=== PATIENT | male | born 1940 | race Caucasian/White ===

== ENCOUNTER 2017-02-11 07:57 | Outpatient (CLI) | payer MEDICARE ==
--- NOTE | 2017-02-11 09:50 | RAD ---
PA AND LATERAL CHEST: Date: 02-11-17 History: CHF. Comparison: 07-21-12 FINDINGS: Triple lead left subclavian AICD device remains in place. Cardiac silhouette is within normal limits . There are increased interstitial opacities seen in the upper lung zones bilaterally similar to the prior study, but more prominent on today's examination, some of which is related to technique. Ther e is interstitial density most likely related to chronic interstitial fibrotic lung changes. No foca l area of consolidation or pleural fluid is seen. Vascular calcification is seen in the thoracic aor ta. No other interval change. IMPRESSION: 1. Chronic lung changes. 2. No acute cardiopulmonary process. POS: [facility]
[2017-02-11 10:46] LABS: #Basophils 0.1 thou/uL (0.0-0.2); #Eosinphils 0.6 thou/uL (0.0-0.7); #Lymphocytes 1.5 thou/uL (1.20-3.40); #Monocytes 0.6 thou/uL (0.11-0.59); #Neutrophils 6.4 thou/uL (1.40-6.50); %Basophils 1.3 % (0.0-1.0); %Eosinophils 6.3 % (0.0-10.0); %Lymphocytes 16.1 % (21.0-51.0); %Neutrophils 69.4 % (42.0-75.0); Hemoglobin 15.2 g/dL (14.0-18.0); Mean Corpuscular HGB CONC 32.9 g/dL (32.0-36.0); Mean Corpuscular Hemoglobin 30.1 pg (27.0-31.0); Mean Corpuscular Volume 91.5 fl (80.0-94.0); Mean Platelet Volume 5.6 fL (7.4-10.4); Platelet Count 293 thou/uL (130-400); RBC Distribution Width 11.8 % (11.5-14.5); Red Blood Cell (RBC) Count 5.03 mill/uL (4.70-6.10); White Blood Cell (WBC) Count 9.2 thou/uL (4.8-10.8)
[2017-02-11 11:07] LABS: Hemoglobin A1c 5.4 % (4.0-6.0)
[2017-02-11 11:15] LABS: ALT (SGPT) Less than 6 U/L (8-55); AST (SGOT) 12 U/L (5-34); Albumin 3.8 g/dL (3.4-4.8); Alkaline Phosphatase 85 U/L (40-150); Anion Gap 15 mmol/L (10-20); BUN (Urea Nitrogen) 13 mg/dL (8.4-25.7); Bilirubin, Direct 0.2 mg/dL (0.1-0.3); Bilirubin, Total 0.5 mg/dL (0.2-1.2); Calc. Creatinine Clearance 0 mL/min (70-130); Calcium 9.5 mg/dL (7.8-10.44); Carbon Dioxide 29 mmol/L (23-31); Cardiac Risk 2.4 (Less than 4.5); Chloride 99 mmol/L (98-107); Cholesterol 131 mg/dl (< 200 Desired); Estimated GFR-MDRD 65; Globulin 3.5 g/dL (2.4-3.5); Glucose 114 mg/dL (83-110); HDL Cholesterol 54 mg/dL (>60 Neg Risk); LDL Cholesterol, Calculated 64 mg/dL; Potassium 4.2 mmol/L (3.5-5.1); Protein, Total 7.3 g/dL (5.8-8.1); Sodium 139 mmol/L (136-145); Triglycerides 66 mg/dL (Less than 150)
[2017-02-11 11:33] LABS: Free T4 (Free Thyroxine) 1.18 ng/dL (0.70-1.48); PSA-Asymptomatic (SCREENING) 2.89 ng/mL (0-4.0)
== END 2017-02-11 07:58 | disposition home or self-care (01) ==
LOC: MADLAB 07:57
PROVIDERS: ATTEND Specialist
DX: Z00.00 Encounter for general adult medical examination without abnormal findings (principal); I50.9 Heart failure, unspecified; E11.9 Type 2 diabetes mellitus without complications
CPT/HCPCS: 71020; 80053; 80061; 82248; 83036; 84439; 84479; 85025; G0103

== ENCOUNTER 2017-04-22 13:43 | Outpatient (CLI) | payer MEDICARE ==
[2017-04-22 14:22] LABS: Hemoglobin A1c 5.3 % (4.0-6.0)
[2017-04-22 14:28] LABS: Cardiac Risk 2.3 (Less than 4.5); Cholesterol 110 mg/dl (< 200 Desired); Glucose 117 mg/dL (83-110); HDL Cholesterol 48 mg/dL (>60 Neg Risk); LDL Cholesterol, Calculated 36 mg/dL; Triglycerides 130 mg/dL (Less than 150)
== END 2017-04-22 13:44 | disposition home or self-care (01) ==
LOC: MADLAB 13:43
PROVIDERS: ATTEND Internal Medicine Endocrinology, Diabetes & Metabolism
DX: E11.65 Type 2 diabetes mellitus with hyperglycemia (principal); E11.40 Type 2 diabetes mellitus with diabetic neuropathy, unspecified; I10 Essential (primary) hypertension
CPT/HCPCS: 36415; 80061; 82947; 83036

== ENCOUNTER 2017-06-05 13:32 | Outpatient (CLI) | payer MEDICARE ==
[2017-06-05 13:48] LABS: #Basophils 0.1 thou/uL (0.0-0.2); #Eosinphils 0.7 thou/uL (0.0-0.7); #Lymphocytes 1.4 thou/uL (1.20-3.40); #Monocytes 0.8 thou/uL (0.11-0.59); #Neutrophils 5.1 thou/uL (1.40-6.50); %Basophils 1.6 % (0.0-1.0); %Eosinophils 9.1 % (0.0-10.0); %Lymphocytes 17.3 % (21.0-51.0); %Monocytes 9.4 % (0.0-10.0); %Neutrophils 62.5 % (42.0-75.0); Hemoglobin 13.7 g/dL (14.0-18.0); Mean Corpuscular HGB CONC 32.4 g/dL (32.0-36.0); Mean Corpuscular Hemoglobin 29.5 pg (27.0-31.0); Mean Corpuscular Volume 91.2 fl (80.0-94.0); Mean Platelet Volume 5.6 fL (7.4-10.4); Platelet Count 308 thou/uL (130-400); RBC Distribution Width 12.1 % (11.5-14.5); Red Blood Cell (RBC) Count 4.64 mill/uL (4.70-6.10); White Blood Cell (WBC) Count 8.1 thou/uL (4.8-10.8)
[2017-06-05 13:56] LABS: Hemoglobin A1c 5.6 % (4.0-6.0)
[2017-06-05 14:22] LABS: ALT (SGPT) 8 U/L (8-55); AST (SGOT) 18 U/L (5-34); Albumin 3.5 g/dL (3.4-4.8); Alkaline Phosphatase 92 U/L (40-150); Anion Gap 12 mmol/L (10-20); BUN (Urea Nitrogen) 9 mg/dL (8.4-25.7); Bilirubin, Total 0.3 mg/dL (0.2-1.2); Calc. Creatinine Clearance 0 mL/min (70-130); Calcium 8.8 mg/dL (7.8-10.44); Carbon Dioxide 30 mmol/L (23-31); Chloride 103 mmol/L (98-107); Estimated GFR-MDRD 51; Globulin 3.3 g/dL (2.4-3.5); Glucose 139 mg/dL (83-110); Potassium 3.8 mmol/L (3.5-5.1); Protein, Total 6.8 g/dL (5.8-8.1); Sodium 141 mmol/L (136-145)
== END 2017-06-05 13:33 | disposition home or self-care (01) ==
LOC: MADLAB 13:32
PROVIDERS: ATTEND Family Medicine
DX: E11.8 Type 2 diabetes mellitus with unspecified complications (principal)
CPT/HCPCS: 36415; 80050; 83036

== ENCOUNTER 2017-08-06 11:58 | Outpatient (CLI) | payer MEDICARE ==
[2017-08-06 12:37] LABS: #Lymphocytes 0.5 thou/uL (1.20-3.40); #Monocytes 0.4 thou/uL (0.11-0.59); #Neutrophils 9.2 thou/uL (1.40-6.50); %Basophils 0.4 % (0.0-1.0); %Eosinophils 0.2 % (0.0-10.0); %Lymphocytes 4.8 % (21.0-51.0); %Monocytes 3.5 % (0.0-10.0); %Neutrophils 91.1 % (42.0-75.0); Hemoglobin 15.3 g/dL (14.0-18.0); Manual Diff?? YES; Mean Corpuscular HGB CONC 32.9 g/dL (32.0-36.0); Mean Corpuscular Hemoglobin 30.3 pg (27.0-31.0); Mean Corpuscular Volume 92.3 fl (80.0-94.0); Mean Platelet Volume 5.5 fL (7.4-10.4); Platelet Count 280 thou/uL (130-400); RBC Distribution Width 12.8 % (11.5-14.5); Red Blood Cell (RBC) Count 5.03 mill/uL (4.70-6.10); White Blood Cell (WBC) Count 10.1 thou/uL (4.8-10.8)
[2017-08-06 12:50] LABS: ALT (SGPT) 8 U/L (8-55); AST (SGOT) 15 U/L (5-34); Albumin 3.7 g/dL (3.4-4.8); Alkaline Phosphatase 81 U/L (40-150); Anion Gap 17 mmol/L (10-20); BUN (Urea Nitrogen) 24 mg/dL (8.4-25.7); Bilirubin, Total 0.6 mg/dL (0.2-1.2); Calc. Creatinine Clearance 0 mL/min (70-130); Calcium 9.2 mg/dL (7.8-10.44); Carbon Dioxide 26 mmol/L (23-31); Chloride 102 mmol/L (98-107); Estimated GFR-MDRD 47; Globulin 3.1 g/dL (2.4-3.5); Glucose 159 mg/dL (83-110); Lipase 48 U/L (8-78); Protein, Total 6.8 g/dL (5.8-8.1); Sodium 141 mmol/L (136-145)
== END 2017-08-06 11:59 | disposition home or self-care (01) ==
LOC: MADLAB 11:58
PROVIDERS: ATTEND Family Medicine
DX: E11.65 Type 2 diabetes mellitus with hyperglycemia (principal); R10.9 Unspecified abdominal pain
CPT/HCPCS: 36415; 80053; 82150; 83690; 85025

== ENCOUNTER 2017-09-30 14:52 | Outpatient (CLI) | payer MEDICARE ==
[2017-09-30 15:02] LABS: #Basophils 0.2 thou/uL (0.0-0.2); #Eosinphils 0.6 thou/uL (0.0-0.7); #Lymphocytes 1.5 thou/uL (1.20-3.40); #Monocytes 0.8 thou/uL (0.11-0.59); #Neutrophils 5.3 thou/uL (1.40-6.50); %Basophils 1.9 % (0.0-1.0); %Eosinophils 7.2 % (0.0-10.0); %Lymphocytes 17.8 % (21.0-51.0); %Monocytes 10.1 % (0.0-10.0); Hemoglobin 13.8 g/dL (14.0-18.0); Lactic Acid 0.8 mmol/L (0.5-2.2); Mean Corpuscular HGB CONC 33.6 g/dL (32.0-36.0); Mean Corpuscular Hemoglobin 30.8 pg (27.0-31.0); Mean Corpuscular Volume 91.7 fl (80.0-94.0); Mean Platelet Volume 5.7 fL (7.4-10.4); Platelet Count 321 thou/uL (130-400); RBC Distribution Width 12.4 % (11.5-14.5); White Blood Cell (WBC) Count 8.4 thou/uL (4.8-10.8)
[2017-09-30 15:06] LABS: Bilirubin Negative (Negative); Blood, Urine Negative (Negative); Clarity Clear (Clear); Glucose, Urine (Dipstick) >=1000 mg/dL (Negative); Leukocyte Negative (Negative); Nitrite Negative (Negative); Protein, Urine (Dipstick) Negative (Neg-Trace); Specific Gravity, Urine 1.025 (1.005-1.030); Urobilinogen 0.2 mg/dL (0.2-1.0); pH, Urine 5.5 (5.0-9.0)
[2017-09-30 15:09] LABS: ALT (SGPT) 9 U/L (8-55); AST (SGOT) 18 U/L (5-34); Albumin 3.6 g/dL (3.4-4.8); Alkaline Phosphatase 97 U/L (40-150); Anion Gap 14 mmol/L (10-20); BUN (Urea Nitrogen) 8 mg/dL (8.4-25.7); Bilirubin, Total 0.3 mg/dL (0.2-1.2); CK (CPK) 111 U/L (30-200); Calc. Creatinine Clearance 0 mL/min (70-130); Calcium 9.1 mg/dL (7.8-10.44); Carbon Dioxide 29 mmol/L (23-31); Chloride 103 mmol/L (98-107); Estimated GFR-MDRD 47; Globulin 3.3 g/dL (2.4-3.5); Glucose 99 mg/dL (83-110); Lipase 102 U/L (8-78); Magnesium 1.8 mg/dL (1.6-2.6); Protein, Total 6.9 g/dL (5.8-8.1); Sodium 142 mmol/L (136-145)
== END 2017-09-30 14:53 | disposition home or self-care (01) ==
LOC: MADLAB 14:52
PROVIDERS: ATTEND Family Medicine
DX: I48.1 Persistent atrial fibrillation (principal); I25.790 Atherosclerosis of other coronary artery bypass graft(s) with unstable angina pectoris; E08.35 Diabetes mellitus due to underlying condition with proliferative diabetic retinopathy; N40.0 Benign prostatic hyperplasia without lower urinary tract symptoms
CPT/HCPCS: 36415; 80053; 81003; 82150; 82550; 83605; 83690; 83735; 85025

== ENCOUNTER 2017-11-11 10:38 | Outpatient (CLI) | payer MEDICARE ==
[2017-11-11 11:27] LABS: #Basophils 0.1 thou/uL (0.0-0.2); #Lymphocytes 0.7 thou/uL (1.20-3.40); #Monocytes 1.3 thou/uL (0.11-0.59); #Neutrophils 14.9 thou/uL (1.40-6.50); %Basophils 0.4 % (0.0-1.0); %Eosinophils 0.3 % (0.0-10.0); %Lymphocytes 4.3 % (21.0-51.0); %Monocytes 7.5 % (0.0-10.0); %Neutrophils 87.4 % (42.0-75.0); Hemoglobin 13.2 g/dL (14.0-18.0); Mean Corpuscular HGB CONC 33.2 g/dL (32.0-36.0); Mean Corpuscular Hemoglobin 29.5 pg (27.0-31.0); Mean Platelet Volume 5.5 fL (7.4-10.4); Platelet Count 373 thou/uL (130-400); RBC Distribution Width 11.9 % (11.5-14.5); Red Blood Cell (RBC) Count 4.45 mill/uL (4.70-6.10); White Blood Cell (WBC) Count 17.1 thou/uL (4.8-10.8)
[2017-11-11 11:46] LABS: ALT (SGPT) 74 U/L (8-55); AST (SGOT) 120 U/L (5-34); Albumin 3.1 g/dL (3.4-4.8); Alkaline Phosphatase 126 U/L (40-150); Anion Gap 15 mmol/L (10-20); BUN (Urea Nitrogen) 32 mg/dL (8.4-25.7); Bilirubin, Total 0.3 mg/dL (0.2-1.2); Calc. Creatinine Clearance 0 mL/min (70-130); Calcium 8.7 mg/dL (7.8-10.44); Carbon Dioxide 24 mmol/L (23-31); Chloride 102 mmol/L (98-107); Estimated GFR-MDRD 52; Globulin 3.1 g/dL (2.4-3.5); Glucose 183 mg/dL (83-110); Potassium 3.9 mmol/L (3.5-5.1); Protein, Total 6.2 g/dL (5.8-8.1); Sodium 137 mmol/L (136-145)
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
--- NOTE | 2017-11-11 13:35 | RAD ---
TWO VIEWS CHEST: HISTORY: Chest pain. COMPARISON: 02/11/2017 FINDINGS: Stable left-sided transvenous defibrillator. Stable atherosclerosis of the aorta. There are worseni ng interstitial and alveolar opacities throughout the lung parenchyma, which may represent an acute p rocess superimposed upon chronic change. Stable blunting of the left costophrenic angle. Stable hyp erinflation. No pneumothorax. IMPRESSION: 1. Possible interstitial and alveolar edema or infiltrate, superimposed upon chronic change. 2. Hyperinflation and chronic obstructive pulmonary disease. 3. Chronic change in the left lung base. POS: [facility]
[2017-11-11 17:43] LABS: Hemoglobin A1c 5.7 % (4.0-6.0)
== END 2017-11-11 10:39 | disposition home or self-care (01) ==
LOC: MADLAB 10:38
PROVIDERS: ATTEND Family Medicine
DX: M53.82 Other specified dorsopathies, cervical region (principal); R41.0 Disorientation, unspecified; R07.9 Chest pain, unspecified; I50.21 Acute systolic (congestive) heart failure; E11.59 Type 2 diabetes mellitus with other circulatory complications; E11.49 Type 2 diabetes mellitus with other diabetic neurological complication; R91.8 Other nonspecific abnormal finding of lung field; V89.2XXA Person injured in unspecified motor-vehicle accident, traffic, initial encounter
CPT/HCPCS: 36415; 70450; 71046; 72125; 80053; 82977; 83036; 83735; 83880; 84443; 85025; 87086; 93005; 93010

== ENCOUNTER 2018-01-29 06:31 | Emergency (ER) | payer MEDICARE | END 2018-01-29 07:10 | disposition home or self-care (01) | LOC: MADERS 06:31 | DX: K59.00 Constipation, unspecified (principal); I25.10 Atherosclerotic heart disease of native coronary artery without angina pectoris; E11.9 Type 2 diabetes mellitus without complications; E03.9 Hypothyroidism, unspecified; K21.9 Gastro-esophageal reflux disease without esophagitis; E78.5 Hyperlipidemia, unspecified; I10 Essential (primary) hypertension | CPT/HCPCS: 99283 ==

== ENCOUNTER 2019-10-07 17:45 | Emergency (ER) | payer MEDICARE ==
--- NOTE | 2019-10-07 18:55 | RAD ---
Chest AP view INDICATION: Chest pain COMPARISON: Prior exam dated November 11, 2017 FINDINGS: Lungs:There are scattered areas of interstitial and airspace opacity involving both lungs in an upper lobe distribution that is new from the comparison examination suspicious for pneumonia. This is superimposed on moderate to severe COPD type changes. Cardiac silhouette:Mild cardiomegaly Pulmonary vasculature:Mildly prominent Pleural spaces:Small bilateral pleural effusions Upper abdomen:No abnormality seen. Osseous structures: No acute osseous abnormality. Additional findings:There is a right sided PICC line in place projecting in the region of the SVC. Th ere is a multi lead AICD which is stable overlying the left chest wall. IMPRESSION: Findings suspicious for bilateral pneumonia superimposed on moderate to severe COPD pantoja e. There are small bilateral pleural effusions. There is a right-sided PICC line in place.
[2019-10-07 18:56] LABS: #Basophils 0.1 thou/uL (0.0-0.2); #Eosinphils 0.3 thou/uL (0.0-0.7); #Lymphocytes 1.5 thou/uL (1.20-3.40); #Monocytes 1.5 thou/uL (0.11-0.59); %Basophils 0.6 % (0.0-1.0); %Eosinophils 1.8 % (0.0-10.0); %Monocytes 9.3 % (0.0-10.0); %Neutrophils 79.3 % (42.0-75.0); Hemoglobin 10.6 g/dL (14.0-18.0); Mean Corpuscular HGB CONC 30.5 g/dL (32.0-36.0); Mean Corpuscular Hemoglobin 24.1 pg (27.0-31.0); Mean Platelet Volume 4.7 fL (7.4-10.4); Platelet Count 518 thou/uL (130-400); Red Blood Cell (RBC) Count 4.41 mill/uL (4.70-6.10); White Blood Cell (WBC) Count 16.4 thou/uL (4.8-10.8)
[2019-10-07 18:57] LABS: MDiff Complete? YES; Polychromasia SLIGHT = 2-3 cells (100X) (0-2/hpf)
--- NOTE | 2019-10-07 18:59 | CT ---
CT Brain WO Con: 10/07/2019 6:36 PM CLINICAL HISTORY: Altered mental status and slurred speech for 2 days. IMAGING TECHNIQUE: Multiple CT images were obtained of the brain without IV contrast. COMPARISON: November 11, 2017 FINDINGS: Brain: There is stable moderate to severe chronic small vessel white matter ischemic change. Remote lacunar infarcts involving the basal ganglia and right thalamus are stable. No midline shift is evident. Ventricles: Normal. No hydrocephalus. Skull: Intact. Visualized Paranasal sinuses: Clear. Mastoid air cells:Clear. Extracranial soft tissues:Normal. IMPRESSION: No acute intracranial abnormality.
[2019-10-07 19:04] LABS: ALT (SGPT) 15 U/L (8-55); AST (SGOT) 17 U/L (5-34); Albumin 2.6 g/dL (3.4-4.8); Alkaline Phosphatase 100 U/L (40-110); Anion Gap 14 mmol/L (10-20); BUN (Urea Nitrogen) 39 mg/dL (8.4-25.7); Bilirubin, Total 0.3 mg/dL (0.2-1.2); Calc. Creatinine Clearance 0 mL/min (70-130); Calcium 8.9 mg/dL (7.8-10.44); Carbon Dioxide 26 mmol/L (23-31); Chloride 100 mmol/L (98-107); Estimated GFR-MDRD 67; Globulin 4.2 g/dL (2.4-3.5); Glucose 104 mg/dL (83-110); Potassium 5.1 mmol/L (3.5-5.1); Protein, Total 6.8 g/dL (5.8-8.1); Sodium 135 mmol/L (136-145)
[2019-10-07 19:22] LABS: Bilirubin Negative (Negative); Blood, Urine Trace (Negative); Clarity Clear (Clear); Glucose, Urine (Dipstick) Negative (Negative); Leukocyte Negative (Negative); Nitrite Negative (Negative); Protein, Urine (Dipstick) Negative (Neg-Trace); Urobilinogen 0.2 mg/dL (Less than 2)
[2019-10-07 19:27] LABS: Bacteria/HPF Rare-Few HPF (None Seen); RBC/HPF 0-3 HPF (0-3); Squamous Epithelial 0-3 HPF (0-3); WBC/HPF 0-3 HPF (0-3)
--- NOTE | 2019-10-07 19:53 | CT ---
CT OF THE THORAX WITHOUT IV CONTRAST INDICATION: History of pulmonary fibrosis and Mycobacterium infection COMPARISON: No relevant prior studies are available. FINDINGS: LUNGS: There is scattered areas of peripheral interstitial fibrotic change with bronchiectasis seen i nvolving the upper lobes and lingula. There is scattered reticular nodularity throughout both lungs suspicious for peripheral bronchiolitis. Multifocal areas of consolidation are seen within the lingul a and left upper lobe.. There is cavitation involving the left upper lobe measuring 5.5 x 5.1 cm. An additional smaller area of cavitation is seen involving the anterior segment left upper lobe measu ring 1.4 cm. There is a small left pleural effusion. Small amount of gas is seen within the posterior left pleural effusion on image 35 series 2 Pleural spaces: Small left hydropneumothorax as discussed above. Lymph nodes: There are calcified lymph nodes within the right subcarinal region. The lack of IV contr ast limits evaluation for hilar lymphadenopathy. Heart and great vessels: There is gas within the anterior pericardial space as well as within the med iastinum adjacent to the the right aspect of the SVC as well as the right internal jugular vein. There is a right-sided PICC line catheter projecting to the SVC. Upper abdomen: Visualized aspects of the upper abdomen appear within normal limits. Osseous structures: No acute osseous abnormality. There is scattered degenerative and osteoarthritic change present. IMPRESSION: 1. Findings most consistent with diffuse bronchopneumonia involving both lungs superimposed on severe pulmonary fibrosis. There are areas of consolidation involving the left upper lobe and lingula. There is an area of cavitation involving the apical posterior segment of the left upper lobe with sma ll amount of adjacent curvilinear gas within the left pleural space on image 20 of series 3. Small bubbles of gas are seen within the posterior left hemithorax on image 35 of series 3. There is a smal l left pleural effusion. Findings are suspicious for invasive pneumonia of the left upper lobe possibly related to fungal disease. Pulmonary consultation is recommended. 2. Gas is present within the anterior pericardial space with a few locules of extraluminal gas seen a djacent to the right aspect of the SVC and right internal jugular vein. There is no definite interstitial gas seen in the left hilar region or the left aspect of the mediastinum. The gas does no t definitely communicate to the pleural surface. Differential considerations include pockets of pneumomediastinum from the patient's small left-sided hydropneumothorax or possibly iatrogenic gas fr om placement of the right-sided PICC line. 3. Findings were discussed with Dr. Ludwig at 7:50 PM on October 07, 2019.
== END 2019-10-07 20:11 | disposition left against medical advice (07) ==
LOC: MADERS 17:45
DX: J18.9 Pneumonia, unspecified organism (principal); J90 Pleural effusion, not elsewhere classified; G45.9 Transient cerebral ischemic attack, unspecified; I25.10 Atherosclerotic heart disease of native coronary artery without angina pectoris; E11.9 Type 2 diabetes mellitus without complications; E03.9 Hypothyroidism, unspecified; K21.9 Gastro-esophageal reflux disease without esophagitis; E78.5 Hyperlipidemia, unspecified; E78.00 Pure hypercholesterolemia, unspecified; I10 Essential (primary) hypertension
CPT/HCPCS: 70450; 71045; 71250; 80053; 81003; 81015; 84443; 84484; 85025; 93005; J1642

== ENCOUNTER 2020-02-02 11:38 | Outpatient (CLI) | payer MEDICARE ==
--- NOTE | 2020-02-02 12:52 | CT ---
CT OF THE THORAX WITHOUT IV CONTRAST INDICATION: Follow-up pneumonia; history of pulmonary fibrosis and mycobacterium infection COMPARISON: CT the thorax without contrast dated October 07, 2019 FINDINGS: LUNGS: The scattered areas of fibrosis and bronchiectasis affecting both lungs is similar appearing. Patchy areas of airspace consolidation within both upper lobes, left greater than right, as well as within the superior segment of the left lower lobe and lingula persists. The area of cavitation within the apical posterior segment of the left upper lobe is slightly enlarge d now measuring 7.9 x 4.7 cm were previously measured 5.5 x 5.1 cm. Pleural spaces: There is a persistent small left pleural effusion Lymph nodes: There are calcified lymph nodes within the mediastinum. Heart and great vessels: Previously seen pneumomediastinum has resolved. Coronary artery and thoracic aortic calcifications are again seen. There is a left chest wall pacemaker in place. Upper abdomen: There is a 1.3 cm right adrenal adenoma is better seen on today's exam. There are calc ified granuloma within the spleen. Osseous structures: No acute fracture or subluxation demonstrated. There is scattered degenerative an d osteoarthritic change present. IMPRESSION: 1. Persistent areas of airspace consolidation involving both upper lobes, lingula and superior left l ower lobe concerning for persistent pneumonia. There is worsening cavitation involving the lesion involving the apical posterior segment of the left upper lobe. Persistent small left pleural effusion . 2. Resolution of the previously seen pneumomediastinum 3. Stable changes of pulmonary fibrosis scattered bronchiectasis. 4. Stable right adrenal adenoma.
--- NOTE | 2020-02-02 14:56 | CT ---
CT BRAIN WITHOUT CONTRAST: 02/02/20 HISTORY: Contusion, dizziness. COMPARISON: 10/07/19. FINDINGS: Changes of cortical atrophy and chronic small vessel ischemic disease are again seen. Old lacunar inf arction in the base of the right thalamus is stable. The ventricular size is stable and the basilar c isterns patent. No evidence of acute infarct, hemorrhage, midline shift or abnormal extra-axial fluid collections is seen. The bony calvarium is intact. There is mucosal retention cyst versus polyp in the left maxilla ry sinus. IMPRESSION: No CT evidence of acute intracranial process. POS: [facility]
== END 2020-02-02 11:39 | disposition home or self-care (01) ==
LOC: MADCT 11:38
PROVIDERS: ATTEND Specialist
DX: F01.51 Vascular dementia, unspecified severity, with behavioral disturbance (principal); R25.1 Tremor, unspecified; R41.0 Disorientation, unspecified; D35.01 Benign neoplasm of right adrenal gland; J98.2 Interstitial emphysema; J18.1 Lobar pneumonia, unspecified organism; R91.1 Solitary pulmonary nodule
CPT/HCPCS: 70450; 71250

== ENCOUNTER 2020-03-06 20:08 | Outpatient (CLI) | payer MEDICARE ==
[2020-03-06 20:12] LABS: Anion Gap 20 mmol/L (10-20); BUN (Urea Nitrogen) 21 mg/dL (8.4-25.7); Calc. Creatinine Clearance 0 mL/min (70-130); Calcium 7.4 mg/dL (7.8-10.44); Carbon Dioxide 27 mmol/L (23-31); Chloride 98 mmol/L (98-107); Estimated GFR-MDRD Greater than 90; Potassium 4.5 mmol/L (3.5-5.1); Sodium 140 mmol/L (136-145)
[2020-03-06 20:14] LABS: Glucose 250 mg/dL (83-110)
[2020-03-06 20:46] LABS: #Lymphocytes 0.4 thou/uL (1.20-3.40); #Monocytes 0.9 thou/uL (0.11-0.59); #Neutrophils 12.5 thou/uL (1.40-6.50); %Basophils 0.2 % (0.0-1.0); %Eosinophils 0.1 % (0.0-10.0); %Monocytes 6.3 % (0.0-10.0); %Neutrophils 90.4 % (42.0-75.0); Hemoglobin 9.5 g/dL (14.0-18.0); Hypochromia SLIGHT = 6-15 cells (100X) (0-5/hpf); MDiff Complete? YES; Mean Corpuscular HGB CONC 29.5 g/dL (32.0-36.0); Mean Corpuscular Volume 88.1 fL (78.0-98.0); Mean Platelet Volume 5.3 fL (7.4-10.4); Platelet Clumps SLIGHT; Platelet Count 301 thou/uL (130-400); Platelet Morphology Comment Appears Adequate; RBC Distribution Width 15.4 % (11.5-14.5); Red Blood Cell (RBC) Count 3.65 mill/uL (4.70-6.10); White Blood Cell (WBC) Count 13.8 thou/uL (4.8-10.8)
== END 2020-03-06 20:09 | disposition home or self-care (01) ==
LOC: MADLAB 20:08
PROVIDERS: ATTEND Internal Medicine Infectious Disease
DX: A31.0 Pulmonary mycobacterial infection (principal)
CPT/HCPCS: 80048; 85025